=== PATIENT | male | born 1935 | race Caucasian/White ===

== ENCOUNTER 2020-11-02 10:19 | Outpatient (CLI) | payer MEDICARE, SELFPAY ==
--- NOTE | 2020-11-02 12:50 | WPDPFTINT ---
PFT Procedure Performed PFT Procedure Performed Plethysmography (Lung Vol) Diffusing Cap (DLCO) Flow Vol Loop Spirometry w/o Bronchodil PFT Interpretation This is a pulmonary function test with spirometry, plethysmography and diffusing capacity. The test was performed and results interpreted in accordance with the 2019 and 2005 ATS/ERS Task Force guidelines respectively using the Global Lung Function Initiative-2012 reference equations. Patient demonstrated good effort and cooperation. Reproducibility criteria were met. The quality of the pre bronchodilator spirometry maneuver was Grade A. Findings: Spirometry: There is decreased maximal expiratory airflow at low lung volumes with a concave expiratory flow tracing. The contour the inspiratory flow tracing is normal. the FVC is 2.62 L, 73% predicted. The FEV1 is 1.76 L, 66% predicted. The FEV1: FVC ratio 67%. Plethysmography: The total lung capacity is 4.53 L, 68% predicted. Functional residual capacity is 1.80 L, 50% predicted. The residual volume is 1.75, 67% predicted. Diffusion capacity: The absolute diffusion capacity is 12.6, 56% predicted. The diffusing capacity corrected for alveolar volume is 3.46, 94% predicted. Impression: There is a combined obstructive and restrictive ventilatory abnormality. There are no guidelines to assign the severity of obstruction and restriction with a combined abnormality. In my opinion, given the mildly concaved expiratory flow tracing and mildly decreased FEV1: FVC ratio and mild restrictive abnormality I would state there is a mild obstructive abnormality and a mild restrictive abnormality resulting in a moderately decreased FEV1. The absolute diffusing capacity is moderately decreased but normalizes when corrected for alveolar volume. There are no prior studies for comparison
== END 2020-11-02 10:20 | disposition home or self-care (01) ==
PROVIDERS: PCP Internal Medicine; Visit Provider Internal Medicine Cardiovascular Disease
DX: R06.00 Dyspnea, unspecified (principal)
CPT/HCPCS: 94375; 94726; 94729

== ENCOUNTER 2023-03-30 19:10 | Inpatient (IN) | payer MEDICARE, SELFPAY ==
[2023-03-30] VITALS (16 sets, daily range): BP systolic 89–121; BP diastolic 30–90; PULSE 24–33; RESP 12–15; TEMP 36.7; O2SAT 93–98
--- NOTE | ~2023-03-30 | XR_ITS ---
EXAMINATION: XR chest 1V portable Exam Date/Time: 03/30/2023 19:30 CDT HISTORY: syncope Comparison: None. RESULT: Lines, tubes, and devices: Suture line projecting over the left lower lung. Lungs and pleura: Low volumes with crowding. Granulomatous calcification. Cardiomediastinal silhouette: Stable. Other: No acute osseous or upper abdominal finding. IMPRESSION: No acute cardiopulmonary process. Reviewed, dictated and finalized at location K.
--- NOTE | ~2023-03-30 | XR_ITS ---
EXAMINATION: XR chest 1V portable DATE: 03/31/2023 13:19 INDICATION: Pacer placement. TECHNIQUE: A single frontal view of the chest was obtained. COMPARISON: Chest single view 03/30/2023 FINDINGS: A calcified right lung nodule and calcified right hilar and mediastinal lymph nodes are con sistent with old granulomatous disease. A staple line overlies left lung. No pleural effusion or pneu mothorax. The heart size is normal. An implant overlies the heart. IMPRESSION: 1. No acute cardiopulmonary disease. Reviewed, dictated and finalized at location E.
--- NOTE | ~2023-03-30 | XR_ITS ---
Clinical Indication: Status post pacemaker placement PA and lateral views of the chest: Comparison: 03/31/2023 Findings: Calcified right upper lobe granuloma present. Suture line at the left lung base noted. No a cute pulmonary abnormality seen. Cardiomediastinal silhouette is within normal limits. Cardiac loop r ecorder is present. Bones and soft tissues are unremarkable. Impression: No acute abnormality. Cardiac loop recorder in place. Reviewed, dictated and finalized at location M. Impression: No acute abnormality. Cardiac loop recorder in place.
--- NOTE | 2023-03-30 19:12 | ECG_ITS ---
Measurements Intervals [employer] Rate: 24 P: MO: 0 QRS: 39 QRSD: 130 T: 15 QT: 541 QTc: 344 Interpretive Statements NORMAL SINUS RHYTHM WITH COMPLETE HEART BLOCK JUNCTIONAL ESCAPE RHYTHM ABNORMAL ECG NO PREVIOUS ECG AVAILABLE FOR COMPARISON Electronically Signed On 03-31-2023 13:29:27 CDT by Rui Antonio M.D.
[2023-03-30] MEDS: ATROPINE SULFATE 1 MG/10 ML SYRINGE IV PUSH ×2 (19:47→21:19)
[2023-03-30] MEDS: ONDANSETRON INJ 4 MG/2 ML VIAL IV PUSH ×2 (19:47→21:20)
[2023-03-30 19:54] LABS: Basophils Percent Auto 0.3 % (0.2-1.2); Eosinophils Absolute Auto 0.2 K/mm3 (0-0.3); Eosinophils Percent Auto 1.7 % (0-4.4); Hematocrit 38.6 % (42.0-52.0); Hemoglobin 12.9 g/dL (14.0-18.0); Immature Granulocyte Absolute 0.06 K/mm3 (0.00-0.031); Immature Granulocyte Percent A 0.6 % (0-0.5); Lymphocytes Absolute Auto 1.59 K/mm3 (0.9-3.2); Lymphocytes Percent Auto 16.6 % (18.3-44.2); Mean Corpuscular HGB Conc 33.4 g/dl (32-36); Mean Corpuscular Hemoglobin 30.3 pg (26-34); Mean Corpuscular Volume 90.6 fl (80-100); Mean Platelet Volume 9.2 fl (7.4-10.4); Monocytes Percent Auto 10.8 % (2.6-8.5); Neutrophils Absolute Auto 6.7 K/mm3 (1.3-6.7); Platelet Count Result 260 k/mm3 (150-375); Red Blood Count 4.26 M/mm3 (4.6-6.20); Red Cell Distribution Width 12.1 % (11.5-14.5); White Blood Count 9.6 K/mm3 (4.5-10.0)
[2023-03-30] MEDS: DOPamine 400 MG/D5W 250 ML 400 MG/250 ML BAG 8.81 MG IV CONT (19:54)
[2023-03-30 20:04] LABS: Alanine Aminotransferase 18 U/L (6-50); Alkaline Phosphatase 66 U/L (38-126); Anion Gap 9 mmol/L (8-16); Aspartate Amino Transferase 29 U/L (17-59); Bilirubin,Total 0.7 mg/dL (0.2-1.3); Blood Urea Nitrogen 21 mg/dL (9-20); Calcium 8.4 mg/dL (8.4-10.2); Carbon Dioxide 23 mmol/L (22-30); Chloride 98 mmol/L (98-107); Estimated CRCL calculation 48 ml/min; Estimated Glomerular Filt Rate > 60; Glucose 100 mg/dL (65-110); Magnesium 2.3 mg/dL (1.6-2.3); Phosphorus 3.7 mg/dL (2.5-4.5); Potassium 4.9 mmol/L (3.4-5.0); Sodium 130 mmol/L (137-145)
[2023-03-30 20:15] LABS: Troponin I < 0.012 ng/mL (0.000-0.034)
[2023-03-30] MEDS: DOPamine 400 MG/D5W 250 ML 400 MG/250 ML BAG 7.05 MG IV CONT (20:18)
[2023-03-30] MEDS: SODIUM CHLORIDE 0.9% IV 1,000 ML 999 ML IV CONT (20:21)
--- NOTE | 2023-03-30 20:23 | PC.NURSE ---
Per verbal order read back from EDP Dr. Christianson dopamine increased to 4mcg/kg.hr.
--- NOTE | 2023-03-30 20:45 | PC.NURSE ---
Per verbal order read back from EDP Dr. Christianson dopamine increased by 2 to 7 mcg/kg/min.
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
[2023-03-30] MEDS: MIDAZOLAM HCL (*CRX) 2 MG/2 ML VIAL IV PUSH (21:20)
[2023-03-30] MEDS: MIDAZOLAM HCL (*CRX) 2 MG/2 ML VIAL 5 MG IV PUSH (21:30)
[2023-03-30] MEDS: fentaNYL CITRATE INJ (*CRX) 100 MCG/2 ML VIAL 50 MCG IV PUSH (21:50)
--- NOTE | 2023-03-30 22:16 | PC.NURSE ---
[facility] sleep lab technician call 21:47, calls returned Vera Shell Renee at [phone]
[2023-03-30] MEDS: RAPID SEQUENCE INTUBATION KIT 1 EACH (22:46)
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
--- NOTE | 2023-03-30 23:56 | ADMIMU ---
2353: This patient, Candelario Tyson, was admitted to IMU status, and placed in Intensive Care Unit-6. Patient/family oriented to hospital policies and general routines including ID bracelet, bed and alarms, visiting hours, pain management, procedures, bathroom and other care routines, personal items, smoking policy, room service/diet, and visiting hours. Valuables list has been completed. Information on how to activate the Rapid Response Team has been discussed. Patient/Family are encouraged to report perceived risks to care and to ask questions if they do not understand what they are told or what they should do.
[2023-03-31] VITALS (18 sets, daily range): BP systolic 96–138; BP diastolic 41–94; PULSE 60–80; RESP 15–20; TEMP 36.2–36.9; O2SAT 91–100; BMI 31.2
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
[2023-03-31 09:09] LABS: Anion Gap 5 mmol/L (8-16); Blood Urea Nitrogen 23 mg/dL (9-20); Calcium 8.2 mg/dL (8.4-10.2); Carbon Dioxide 23 mmol/L (22-30); Chloride 100 mmol/L (98-107); Estimated CRCL calculation 43 ml/min; Estimated Glomerular Filt Rate 58; Glucose 100 mg/dL (65-110); Potassium 5.5 mmol/L (3.4-5.0); Sodium 128 mmol/L (137-145)
--- NOTE | 2023-03-31 11:16 | WPDMODSED ---
Moderate Sedation Note-Pt Data Patient Data Diagnosis: Acquired complete heart block with syncope Present Complaint: Syncopal episode Procedure to be performed/Plan: Implantation of permanent pacemaker Allergies Allergy/AdvReac Type Severity Reaction Status Date / Time No Known Allergies Allergy Unknown Verified 02/26/23 08:59 Home Medications Medication Instructions Recorded Confirmed Type atorvastatin 40 mg tablet 40 mg PO QPM 03/17/20 03/31/23 History cholecalciferol (vitamin D3) 125 125 mcg PO QMWF 03/17/20 03/31/23 History mcg (5,000 unit) capsule docusate sodium 100 mg capsule 100 mg PO DAILY PRN Constipation 03/17/20 03/31/23 History finasteride 5 mg tablet 5 mg PO DAILY 03/17/20 03/30/23 History lisinopril 2.5 mg tablet 2.5 mg PO DAILY 03/17/20 03/30/23 History metoprolol succinate 25 mg 25 mg PO DAILY 03/17/20 03/30/23 History tablet,extended release 24 hr multivitamin with minerals 1 cap PO DAILY 03/17/20 03/30/23 History nitroglycerin 0.4 mg sublingual 0.4 mg sublingual Q5M PRN Chest 03/17/20 03/31/23 History tablet (Nitrostat) Pain tamsulosin 0.4 mg capsule 0.4 mg PO DAILY #90 caps 09/13/22 03/30/23 Rx gabapentin 300 mg capsule 300 mg PO TID #90 caps 09/16/22 03/30/23 Rx Current Medications: Active Medications Atorvastatin Calcium (Atorvastatin 40 Mg Tablet) 40 mg PO QPM ELI Docusate Sodium (Docusate Sodium 100 Mg Capsule) 100 mg PO DAILY PRN PRN Reason: Constipation Finasteride (Finasteride 5 Mg Tablet) 5 mg PO DAILY ELI Gabapentin (Gabapentin 300 Mg Capsule) 300 mg PO TID ELI Tamsulosin HCl (Tamsulosin Hcl 0.4 Mg Capsule) 0.4 mg PO DAILY ELI Sedation/Anesthesia: No previous sedation/anesthesia problems (including family history). [facility] Past Medical History Medical History AAA (abdominal aortic aneurysm) With stenting BPH (benign prostatic hyperplasia) C2 cervical fracture Managed conservatively C6 cervical fracture Cervical radiculopathy CKD (chronic kidney disease) stage 3, GFR 30-59 ml/min COPD (chronic obstructive pulmonary disease) Pulmonary function testing 2020 demonstrate combined obstructive and restrictive ventilatory defect Coronary artery disease Nonobstructive coronary disease noted on cardiac catheterization 2016 GERD (gastroesophageal reflux disease) HTN (hypertension) Hyperlipidemia Prediabetes Umbilical hernia Surgical History Surgical History History of cardiac catheterization (~2017) History of colonoscopy with polypectomy History of right below knee amputation At 55 years of age due to trauma Hx of cholecystectomy Status post cataract extraction of both eyes with insertion of intraocular lens Family History Family History Father Acute myocardial infarction Malignant neoplasm of prostate Mother Family history of aortic aneurysm Other Cerebrovascular accident Family history of cardiovascular disease Hypertension Social History Social History Social History: The patient lives with his of 45 years. He drinks coffee daily. He denies any alcohol or drug use history. He used to smoke but quit smoking over 20 years ago. Code status: The patient states he would not usually want heroic measures. However he is willing to have cardiopulmonary resuscitation in the event of cardiac arrest if in the course of placement of a pacemaker. He would not want to be on a ventilator long-term. He would not want a feeding tube. His was present at bedside when the patient made the statements. Surrogate decision maker: Smoking status: Former smoker Additional smoking assessment comments: patient smoked for 52 years Alcohol intake: never Alcohol use details: occasional beer Substance use type: does not use Lack of Transpo
--- NOTE | 2023-03-31 12:14 | ECG_ITS ---
Measurements Intervals [place] Rate: 68 P: [place]: 0 QRS: 80 QRSD: 162 T: -72 QT: 438 QTc: 468 Interpretive Statements ELECTRONIC VENTRICULAR PACEMAKER ABNORMAL RHYTHM ECG COMPARED TO ECG 03/30/2023 19:18:17 AV BLOCK, COMPLETE (THIRD-DEGREE) NO LONGER PRESENT Electronically Signed On 04-01-2023 12:10:56 CDT by Cassie Tamayo M.D.
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
[2023-03-31] MEDS: GABAPENTIN 300 MG CAPSULE PO ×2 (13:10→16:28)
[2023-03-31] MEDS: SODIUM CHLORIDE 0.9% IV 1,000 ML 50 ML IV CONT (13:11)
[2023-03-31] MEDS: FINASTERIDE 5 MG TABLET PO (13:11)
[2023-03-31] MEDS: TAMSULOSIN HCL 0.4 MG CAPSULE PO (13:11)
[2023-03-31] MEDS: ceFAZolin 1 GM/NS 50 ML 1 GM/50 ML BAG IVPB ×2 (13:24→21:10)
--- NOTE | 2023-03-31 15:24 | PC.NURSE ---
This patient, Candelario Tyson, was transferred to [facility] on 03/31/23 at 1510. Personal belongings sent with patient. Report given to Kori WESLEY. Appropriate documentation sent with patient.
--- NOTE | 2023-03-31 17:39 | PM.IMPN ---
Progress Note: A&P Assessment and Plan (1) Heart block AV third degree: Code(s): I44.2 - Atrioventricular block, complete Status: Acute Assessment and Plan: Patient presented with complete heart block and did not respond to atropine or transcutaneous pacing. Status post transvenous pacemaker placement cardiology overnight. Internal Revenue Agent placed permanent pacemaker today. No complications Continue telemetry monitoring (2) Syncope: Qualifiers: Syncope type: unspecified Qualified Code(s): R55 - Syncope and collapse Code(s): R55 - Syncope and collapse Status: Acute Assessment and Plan: Secondary to bradycardia. Now asymptomatic (3) COPD (chronic obstructive pulmonary disease): Qualifiers: COPD type: unspecified COPD Qualified Code(s): J44.9 - Chronic obstructive pulmonary disease, unspecified Code(s): J44.9 - Chronic obstructive pulmonary disease, unspecified Status: Acute Assessment and Plan: Not in exacerbation He has mild disease and has not been symptomatic at home Monitor (4) Coronary artery disease: Qualifiers: Coronary Disease-Associated Artery/Lesion type: unspecified vessel or lesion type [place] vs. transplanted heart: unspecified whether [place] or transplanted heart Associated angina: angina presence unspecified Qualified Code(s): I25.10 - Atherosclerotic heart disease of [place] coronary artery without angina pectoris Code(s): I25.10 - Atherosclerotic heart disease of [place] coronary artery without angina pectoris Status: Acute Assessment and Plan: Resume beta-megan and RAJIV-inhibitor once placement pacemakers placed depending on the vitals Continue statin Aspirin is on hold for the procedure (5) HTN (hypertension): Qualifiers: Hypertension type: essential hypertension Qualified Code(s): I10 - Essential (primary) hypertension Code(s): I10 - Essential (primary) hypertension Status: Acute Assessment and Plan: Blood pressure acceptable at this time. Monitor Lisinopril and beta-megan on hold Resume blood pressure medication when blood pressure bumps up Plan DVT prophylaxis -start Lovenox post pacemaker placement Code Status - Full Code Subjective Date/time seen: 03/31/23 17:39 Interval history: I saw and examined the patient on her patient came back from experimental machining lab manager. Patient received pacemaker, patient denied chest pain, abdomen pain, headache, focal with a, vision change. Exam Narrative: General: Pt is alert awake and in NAD Lungs/Chest: Trachea central Clear BS B/L, No crackles or wheezing. Cardiac: RRR. Normal S1 S2. No murmurs Circulation: Pedal pulses are intact and symmetrical. Abdomen: Normal bowel sounds.. Soft. NT. ND. Extremities: No clubbing, cyanosis or edema. Warm status post right BKA, need to insert inset in right groin, no hematoma or active bleeding : Jones in place Neurologic: Follows commands. Moves all 4 extremities PERRL AO x3 Skin: No Rash Objective Data Vital Signs Vital Signs: Vital Signs - 24 hr 03/30/23 19:19 03/30/23 19:54 03/30/23 20:05 Temperature 98.0 F Pulse Rate 24 L 31 L 28 L Pulse Rate [Left Pedal (Dorsalis Pedis)] Respiratory Rate 14 Blood Pressure 114/62 108/44 L Pulse Oximetry 96 Oxygen Delivery Room Air Oxygen Flow Rate Fraction of Inspired Oxygen 03/30/23 20:18 03/30/23 20:20 03/30/23 19:54 Temperature Pulse Rate 31 L 31 L 24 L Pulse Rate [Left Pedal (Dorsalis Pedis)] Respiratory Rate 12 Blood Pressure 97/30 L 98/32 L 108/44 L Pulse Oximetry 97 Oxygen Delivery Oxygen Flow Rate Fraction of Inspired Oxygen 03/30/23 20:00 03/30/23 20:26 03/30/23 20:27 Temperature Pulse Rate 27 L 32 L Pulse Rate [Left Pedal (Dorsalis Pedis)] Respiratory Rate 13 Blood Pressure 100/38 L Pulse Oximetry 98 Oxygen Delivery Nasal Cannula Oxygen
[2023-03-31] MEDS: ATORVASTATIN 40 MG TABLET PO (17:58)
[2023-04-01] VITALS (11 sets, daily range): BP systolic 96–128; BP diastolic 43–59; PULSE 61–79; RESP 18–20; TEMP 36.6–36.9; O2SAT 93–98
[2023-04-01] MEDS: FINASTERIDE 5 MG TABLET PO (09:08)
[2023-04-01] MEDS: TAMSULOSIN HCL 0.4 MG CAPSULE PO (09:08)
[2023-04-01] MEDS: GABAPENTIN 300 MG CAPSULE PO ×3 (09:08→17:36)
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
[2023-04-01 12:42] LABS: Anion Gap 8 mmol/L (8-16); Blood Urea Nitrogen 18 mg/dL (9-20); Calcium 8.2 mg/dL (8.4-10.2); Carbon Dioxide 23 mmol/L (22-30); Chloride 98 mmol/L (98-107); Estimated CRCL calculation 46 ml/min; Estimated Glomerular Filt Rate > 60; Glucose 129 mg/dL (65-110); Potassium 4.8 mmol/L (3.4-5.0); Sodium 129 mmol/L (137-145)
[2023-04-01] MEDS: DOCUSATE SODIUM 100 MG CAPSULE PO (13:05)
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
[2023-04-01] MEDS: ATORVASTATIN 40 MG TABLET PO (17:36)
== END 2023-04-01 17:47 | disposition home or self-care (01) | DRG 229 ==
LOC: ANHED 22:32 → ANHICU 23:36 → ANHIMU 03-31 15:18
PROVIDERS: Internal Medicine; Nurse Practitioner; Admitting Provider Specialist; Emergency Provider Emergency Medicine; PCP Internal Medicine; Visit Provider Family Medicine
PROC: 5A1213Z Performance of Cardiac Pacing, Intermittent (ICD-10-PCS; CPT 33210; principal; 2023-03-30 22:30)
PROC: 02HK3NZ Insertion of Intracardiac Pacemaker into Right Ventricle, Percutaneous Approach (ICD-10-PCS; CPT 33274; principal; 2023-03-31 11:00)
DX: I44.2 Atrioventricular block, complete (principal); R55 Syncope and collapse; I12.9 Hypertensive chronic kidney disease with stage 1 through stage 4 chronic kidney disease, or unspecified chronic kidney disease; N18.31 Chronic kidney disease, stage 3a; J44.9 Chronic obstructive pulmonary disease, unspecified; I25.10 Atherosclerotic heart disease of native coronary artery without angina pectoris; M54.12 Radiculopathy, cervical region; I44.7 Left bundle-branch block, unspecified; E78.5 Hyperlipidemia, unspecified; N40.0 Benign prostatic hyperplasia without lower urinary tract symptoms; E66.9 Obesity, unspecified; Z87.891 Personal history of nicotine dependence; V47.5XXA Car driver injured in collision with fixed or stationary object in traffic accident, initial encounter; Z89.511 Acquired absence of right leg below knee; Z98.42 Cataract extraction status, left eye; Z98.41 Cataract extraction status, right eye; Z68.30 Body mass index [BMI] 30.0-30.9, adult; Z96.1 Presence of intraocular lens
CPT/HCPCS: 33210; 33274; 36415; 71045; 71046; 80048; 80053; 83735; 84100; 84484; 85025; 93005; 96365; 96366; 96367; 96375; 96376; 99285; A9270; C1769; C1786; C1894; J0461; J0690; J1265; J1644; J2250; J2405; J3010; J7030; J7040

== ENCOUNTER 2025-04-03 02:22 | Emergency (ER) | payer OTHER, SELFPAY ==
[2025-04-03] VITALS (17 sets, daily range): BP systolic 115–172; BP diastolic 53–83; PULSE 69–93; RESP 16–22; TEMP 36.4; O2SAT 94–100
--- NOTE | ~2025-04-03 | CT_ITS ---
CHEST ABDOMEN PELVIS WITH CONTRAST CLINICAL HISTORY: CP/epigastric pain; hx AAA . COMPARISON: Chest x-ray same day TECHNIQUE: Helical CT performed from thoracic inlet to symphysis pubis 100 mL Omnipaque 350 Coronal, sagittal reformats. Multi planar MIPS CT images acquired with automatic exposure control for dose reduction DLP: 897 mGy-cm FINDINGS: CHEST- Lungs/Pleura: A few calcified granulomata. Focal atelectasis left lateral base. Thoracic Aorta: No dissection. No aneurysm. Atherosclerotic disease. Pulmonary arteries: Normal caliber. Heart: Coronary artery calcifications. Tracheobronchial tree: Patent. Nodes: No enlarged nodes. Mediastinal and hilar calcifications. Bones: No acute bony abnormality. Soft tissues: Unremarkable. ABDOMEN/PELVIS- Liver: Intra and extrahepatic biliary ductal dilatation after cholecystectomy. Gallbladder: Removed. Spleen: Unremarkable. Pancreas: Unremarkable. Adrenal glands: Unremarkable. Kidneys: Right kidney- No hydronephrosis. No renal stones. Cyst. Left kidney- No hydronephrosis. No renal stones. Distal esophagus/stomach: Unremarkable. Small bowel loops: Normal caliber and wall thickness. Colon: A few diverticula. Normal caliber and wall thickness. Normal RLQ appendix. Nodes: No enlarged nodes. Peritoneum: No ascites. No free air. Urinary bladder: Diverticulum right UVJ, with possible mild mural irregularity. Prostate: Unremarkable. Bones: No acute bony abnormality. Soft tissues: Unremarkable. Aorta: Bifurcating endograft. Excluded aneurysm sac 4.9 cm. No endoleak on this single phase scan. IVC: Unremarkable. Main portal vein/SMV/splenic vein: Patent. IMPRESSION: CHEST- 1. No acute abnormality. ABDOMEN/PELVIS- 1. No acute abnormality. 2. Small bladder diverticulum near right UVJ. Consider cystoscopy given possible slight mural irregularity. 3. Excluded AAA sac after EVAR 4.9 cm. Recommend surveillance. Reviewed, dictated and finalized at location R. IMPRESSION: CHEST- 1. No acute abnormality. ABDOMEN/PELVIS- 1. No acute abnormality. 2. Small bladder diverticulum near right UVJ. Consider cystoscopy given possib le slight mural irregularity. 3. Excluded AAA sac after EVAR 4.9 cm. Recommend surveillance.
--- NOTE | ~2025-04-03 | XR_ITS ---
Examination: XR chest 2V Clinical History: Chest pain Comparison: 04/01/2023 Technique: PA and Lateral Findings: Wireless pacemaker. Cardiomediastinal silhouette normal size and configuration. Left basilar suture line. Right upper lobe calcified granuloma. Lungs otherwise clear. No acute bony abnormality. Cholecystectomy. Abdominal aortic endograft. IMPRESSION: 1. No acute cardiopulmonary findings. Reviewed, dictated and finalized at location R.
--- NOTE | 2025-04-03 02:23 | ECG_ITS ---
Test Date: 2025-04-03 04:56:49 Measurements Intervals [place] Rate: 74 P: 42 [place]: 165 QRS: -7 QRSD: 152 T: 99 QT: 407 QTc: 454 Interpretive Statements ELECTRONIC VENTRICULAR PACEMAKER BASELINE ARTIFACT- I, II, AVR, AVL, AVF, V4-V6 NO FURTHER INTERPRETATION IS POSSIBLE ATYPICAL ECG No previous ECG available for comparison Electronically Signed On 04-03-2025 08:23:28 CDT by Carlos Alberto Nelson D.O.
[2025-04-03 02:48] LABS: Hematocrit 39.3 % (42.0-52.0); Hemoglobin 13.3 g/dL (14.0-18.0); Immature Granulocyte Percent A 0.6 % (0-0.5); Lymphocytes Absolute Auto 1.51 K/mm3 (0.9-3.2); Mean Corpuscular HGB Conc 33.8 g/dl (32-36); Mean Corpuscular Hemoglobin 30.4 pg (26-34); Mean Corpuscular Volume 89.7 fl (80-100); Nucleated Red Blood Cells Absolute Auto 0.000 K/mm3 (0.0-0.012); Nucleated Red Blood Cells Perc 0.0 % (0.0-0.2); Platelet Count Result 267 k/mm3 (150-375); Red Blood Count 4.38 M/mm3 (4.6-6.20); White Blood Count 9.6 K/mm3 (4.5-10.0)
[2025-04-03 02:52] LABS: Alanine Aminotransferase 35 U/L (6-50); Albumin Level 3.8 g/dL (3.5-5.1); Alkaline Phosphatase 81 U/L (38-126); Anion Gap 6 mmol/L (4-12); Aspartate Amino Transferase 72 U/L (17-59); Bilirubin,Total 0.7 mg/dL (0.2-1.3); Blood Urea Nitrogen 19 mg/dL (9-20); Calcium 8.7 mg/dL (8.4-10.2); Carbon Dioxide 27 mmol/L (22-30); Chloride 97 mmol/L (98-107); Estimated Glomerular Filt Rate > 60; Glucose 109 mg/dL (65-110); Lipase 51 U/L (23-300); Potassium 4.5 mmol/L (3.4-5.0); Sodium 130 mmol/L (137-145); Total Protein 6.6 g/dL (6.3-8.2)
[2025-04-03 02:53] LABS: INR 1.0; Prothrombin Time 13.2 Seconds (11.1-14.7)
[2025-04-03 02:54] LABS: Partial Thromboplastin Time 29.1 Seconds (22.3-36.8)
[2025-04-03 03:02] LABS: Troponin I < 0.012 ng/mL (0.000-0.034)
[2025-04-03] MEDS: ASPIRIN 81 MG CHEWABLE TABLET 324 MG PO (04:42)
--- NOTE | 2025-04-03 04:42 | PC.NURSE ---
Pt presents to ED c/o 07/09 chest pain, non radiating lasting about 30min. Per pt was woken up from his sleep, symptoms subsided prior to being roomed.
--- NOTE | 2025-04-03 05:32 | ECG_ITS ---
Test Date: 2025-04-03 05:47:57 Measurements Intervals [place] Rate: 71 P: 50 [place]: 155 QRS: -11 QRSD: 163 T: 104 QT: 439 QTc: 479 Interpretive Statements ATRIAL SENSE- ELECTRONIC VENTRICULAR PACEMAKER NO FURTHER INTERPRETATION IS POSSIBLE ATYPICAL ECG Compared to ECG 04/03/2025 04:56:49 No significant changes Electronically Signed On 04-03-2025 08:26:32 CDT by Carlos Alberto Nelson D.O.
--- NOTE | 2025-04-03 05:36 | ED_ITS ---
HPI - Chest Pain General Chief Complaint: Chest Pain Stated Complaint: Epigastric/chest pain Time Seen by Provider: 04/03/25 05:07 Source: patient and family () Mode of arrival: ambulatory Limitations: no limitations History of Present Illness HPI narrative: Patient presents with was initially reported as chest pain versus epigastric pain he does consistently point to his epigastrium. He has had similar pain before. This pain awoke him from his sleep. History of a AAA and aneurysm further down in groin which was discovered in 2015 after undergoing cardiac catheterization for an ME; it is unclear if he has any stents. Unclear if he had blockages. keeps stating he had a left bundle branch blockage. This was performed by Dr Edwards who had been with Bruno and now Sreedhar (or vice versa); then seen by bottom cager Dr Mitchell. Patient saw his vascular surgeon in November and this continues to be monitored. His symptoms have lessened over the last 2 hours and arm no longer present and he states that he feels silly about being in the emergency department at this time. He has otherwise been in his baseline state of health and denies any cough, fevers, chills, shortness of breath, nausea, vomiting, diaphoresis. He takes that daily 81 mg aspirin no other anticoagulation. His last bowel movement was without diarrhea, constipation, or blood. He initially denies any previous abdominal surgeries but he is status post cholecystectomy upon further assessment (and stenting is reported for his AAA on review of EMR). Patient saw the bottom cager Dr. Henderson a few weeks ago. He has a pacemaker with in his heart, reports it being the size of the ear piece on stethoscope. His primary care physician is Dr. Becerril. He has a reducible umbilical hernia. Cardiac risk factors HTN: No (he is reportedly on metoprolol for other non hypertensive reasons though unclear what and hypertension is listed on his PMH in EMR) HLD: Yes, on medication DM: No Obese: - yes based on appearance Smoker: No Personal history ME/TIA/CVA: Yes? Related Data Home Medications ?Medication ?Instructions ?Recorded ?Confirmed ?Last Taken ?Type atorvastatin 40 mg tablet 40 mg PO QPM 03/17/20 Unknown History cholecalciferol (vitamin D3) 125 125 mcg PO QMWF 09/18 /20 10/02/23 Unknown History mcg (5,000 unit) capsule docusate sodium 100 mg capsule 100 mg PO DAILY PRN Con stipation 03/17/20 03/31/23 Unknown History finasteride 5 mg tablet 5 mg PO DAILY 03/17/2003/30 Unknown History metoprolol succinate 25 mg 25 mg PO DAILY 03/17/2007/22 Unknown History tablet,extended release 24 hr multivitamin with minerals 1 cap PO DAILY 03/17/2007/22 Unknown History nitroglycerin 0.4 mg sublingual 0.4 mg sublingual Q5M PRN Chest 03/17/20 03/31/23 Unknown History tablet (Nitrostat) Pain aspirin 81 mg tablet,delayed 81 mg PO DAILY 10/09/23 Unknown History release (Adult Low Dose Aspirin) vitamin C 45 mg-zinc citrate 3.75 tablet PO 10/09/23 Unknown History mg-elderberry 50 mg chewable tablet ([employer]) Allergies Allergy/AdvReac Type Severity Reaction Status Date / Time No Known Allergies Allergy Unknown Verified 04/03/25 02:23 [facility] Past Medical History Medical History BPH (benign prostatic hyperplasia) Umbilical hernia GERD (gastroesophageal reflux disease) CKD (chronic kidney disease) stage 3, GFR 30-59 ml/min Prediabetes Cervical radiculopathy C6 cervical fracture C2 cervical fracture Managed conservatively COPD (chronic obstructive pulmonary disease) Pulmonary function testing 2020 demonstrate combined obstructive and restrictive ventilatory defect AAA (abdominal aortic aneurysm) With stenting Coronary artery disease Nonobstructive coronary disease noted on cardiac catheterization 2016 Hyperlipidemia HTN (hypertension) Surgical History Surgical History Status post cataract extraction of both eyes with insertion of intraocular lens History of colonoscopy with polypectomy Hx of cholecystectomy History of cardiac catheterization (~2017) History of right below knee amputation At 55 years of age due to trauma Family History Family History Father Acute myocardial infarction Malignant neoplasm of prostate Mother Family history of aortic aneurysm Other Cerebrovascular accident Family history of cardiovascular disease Hypertension Social History Social History (Updated 04/03/25 @ 08:48 by Brenna De Los Santos MD) Social History: The patient lives with his of 45 years. He drinks coffee daily. He denies any alcohol or drug use history. He used to smoke but quit smoking over 20 years ago. Code status: The patient states he would not usually want heroic measures. However he is willing to have cardiopulmonary resuscitation in the event of cardiac arrest if in the course of placement of a pacemaker. He would not want to be on a ventilator long-term. He would not want a feeding tube. His was present at bedside when the patient made the statements. 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 HEAD: Normocephalic, atraumatic. EYES: Non injected, non icteric ENT: Nares clear, no rhinorrhea or epistaxis. Gross auditory acuity intact. NECK: Supple. No meningismus. CHEST: Speaking in full sentences. No respiratory distress. HEART: Regular rate and rhythm. . ABDOMEN: Obese but Soft, distended but No rigidity or guarding. Not peritoneal. Reducible umbilical hernia. EXTREMITIES: Normal range of motion. R BKA ; stump intact without erythema, purulent drainage. SKIN: Warm, dry, no rash. NEURO: No focal deficits. Alert and oriented. Answering questions. Following commands. Normal speech without aphasia or dysarthria. PSYCH: Normal mood and affect. Course Vital Signs Vital signs: Vital Signs Temperature 97.6 F 04/03/25 02:26 Pulse Rate 80 04/03/25 02:26 Respiratory Rate 22 H 04/03/25 02:26 Blood Pressure 141/53 H 04/03/25 02:26 Pulse Oximetry 98 04/03/25 02:26 Oxygen Delivery Room Air 04/03/25 02:26 Temperature 97.6 F 04/03/25 02:26 Pulse Rate 86 04/03/25 08:47 Respiratory Rate 16 04/03/25 08:47 Blood Pressure 127/65 04/03/25 08:47 Pulse Oximetry 97 04/03/25 08:47 Oxygen Delivery Room Air 04/03/25 04:47 MDM - Chest Pain MDM Narrative Medical decision making narrative: Patient presents with epigastric abdominal pain. At 1st it was questionable chest pain versus epigastric pain however he distinctly points at his epigastrium. Pain improved of the course of 2 hours. In the emergency department he is afebrile signs notable for mild tachypnea mild hypertension. No leukocytosis. He has a very mild anemia but it represents only a change of 0.1 from previous. He has an isolated AST elevation not previously seen. He has chronic hyponatremia, stable. Repeat troponin normal. Urinalysis unremarkable. Patient's pain has improved and has not recurred. He feels fine with being discharged. Confirms he already has a urologist, Dr Mott, for follow up of the bladder lesion seen on CT which I discussed with him. Differential Diagnosis Differential diagnosis: Likely stable angina, unstable angina pectoris, atypical chest pain, st elevation myocardial infarction, chest pain, biliary colic (considered but patient s/p natasha) and other (Pancreatitis, constipation gastritis GERD; small bowel obstruction; peptic/gastric ulcer) Lab Data Attestation: I reviewed the patient's lab results. 04/03/25 02:33 04/03/25 02:32 Labs: Lab Results 04/03/25 04/03/25 04/03/25 Range/Units 02:32 02:33 05:57 WBC 9.6 (4.5-10.0) K/mm3 RBC 4.38 L (4.6-6.20) M/mm3 Hgb 13.3 L (14.0-18.0) g/dL Hct 39.3 L (42.0-52.0) % MCV 89.7 (80-100) fl MCH 30.4 (26-34) pg MCHC 33.8 (32-36) g/dl RDW 12.1 (11.5-14.5) % Plt Count 267 (150-375) k/mm3 MPV 9.2 (7.4-10.4) fl Immature Gran % (Auto) 0.6 H (0-0.5) % Neut % (Auto) 68.6 (45.5-73.1) % Lymph % (Auto) 15.7 L (18.3-44.2) % Moody % (Auto) 10.1 H (2.6-8.5) % Eos % (Auto) 4.6 H (0-4.4) % Baso % (Auto) 0.4 (0.2-1.2) % Lymph # (Auto) 1.51 (0.9-3.2) K/mm3 Moody # (Auto) 1.0 H (0.1-0.6) K/mm3 Eos # (Auto) 0.4 H (0-0.3) K/mm3 Baso # (Auto) 0.0 (0.0-0.1) K/mm3 Abs Immat Gran (auto) 0.06 H (0.00-0.031) K/mm3 Absolute Neuts (auto) 6.6 (1.3-6.7) K/mm3 Absolute Nucleated RBC 0.000 (0.0-0.012) K/mm3 Nucleated RBC % 0.0 (0.0-0.2) % PT 13.2 (11.1-14.7) Seconds INR 1.0 APTT 29.1 (22.3-36.8) Seconds Sodium 130 L (137-145) mmol/L Potassium 4.5 (3.4-5.0) mmol/L Chloride 97 L (98-107) mmol/L Carbon Dioxide 27 (22-30) mmol/L Anion Gap 6 (4-12) mmol/L BUN 19 (9-20) mg/dL Creatinine 1.06 (0.7-1.3) mg/dL Estim Creat Clear Calc Not Reportable Estimated GFR > 60 (59 - ) Glucose 109 (65-110) mg/dL Calcium 8.7 (8.4-10.2) mg/dL Total Bilirubin 0.7 (0.2-1.3) mg/dL AST 72 H (17-59) U/L ALT 35 (6-50) U/L Alkaline Phosphatase 81 (38-126) U/L Troponin I < 0.012 < 0.012 (0.000-0.034) ng/mL NT-Pro-B Natriuret Pep 93 (19.9-100) pg/mL Total Protein 6.6 (6.3-8.2) g/dL Albumin 3.8 (3.5-5.1) g/dL Lipase 51 (23-300) U/L Urine Color (Yellow) Urine Appearance (Clear) Urine pH (5.0-9.0) Ur Specific [place] (1.001-1.035) Urine Protein (Negative) mg/dL Urine Glucose (UA) (Negative) mg/dL Urine Ketones (Negative) mg/dL Ur Blood (Man) (Negative) Urine Nitrate (Negative) Urine Bilirubin (Negative) Urine Urobilinogen (<2.0) mg/dL Leukocyte Esterase Rfl (Negative) SAM/UL 04/03/25 04/03/25 Range/Units 07:31 08:34 WBC (4.5-10.0) K/mm3 RBC (4.6-6.20) M/mm3 Hgb (14.0-18.0) g/dL Hct (42.0-52.0) % MCV (80-100) fl MCH (26-34) pg MCHC (32-36) g/dl RDW (11.5-14.5) % Plt Count (150-375) k/mm3 MPV (7.4-10.4) fl Immature Gran % (Auto) (0-0.5) % Neut % (Auto) (45.5-73.1) % Lymph % (Auto) (18.3-44.2) % Moody % (Auto) (2.6-8.5) % Eos % (Auto) (0-4.4) % Baso % (Auto) (0.2-1.2) % Lymph # (Auto) (0.9-3.2) K/mm3 Moody # (Auto) (0.1-0.6) K/mm3 Eos # (Auto) (0-0.3) K/mm3 Baso # (Auto) (0.0-0.1) K/mm3 Abs Immat Gran (auto) (0.00-0.031) K/mm3 Absolute Neuts (auto) (1.3-6.7) K/mm3 Absolute Nucleated RBC (0.0-0.012) K/mm3 Nucleated RBC % (0.0-0.2) % PT (11.1-14.7) Seconds INR APTT (22.3-36.8) Seconds Sodium (137-145) mmol/L Potassium (3.4-5.0) mmol/L Chloride (98-107) mmol/L Carbon Dioxide (22-30) mmol/L Anion Gap (4-12) mmol/L BUN (9-20) mg/dL Creatinine (0.7-1.3) mg/dL Estim Creat Clear Calc Estimated GFR (59 - ) Glucose (65-110) mg/dL Calcium (8.4-10.2) mg/dL Total Bilirubin (0.2-1.3) mg/dL AST (17-59) U/L ALT (6-50) U/L Alkaline Phosphatase (38-126) U/L Troponin I < 0.012 (0.000-0.034) ng/mL NT-Pro-B Natriuret Pep (19.9-100) pg/mL Total Protein (6.3-8.2) g/dL Albumin (3.5-5.1) g/dL Lipase (23-300) U/L Urine Color Yellow (Yellow) Urine Appearance Clear (Clear) Urine pH 7.5 (5.0-9.0) Ur Specific [place] 1.028 (1.001-1.035) Urine Protein Negative (Negative) mg/dL Urine Glucose (UA) Negative (Negative) mg/dL Urine Ketones Negative (Negative) mg/dL Ur Blood (Man) Negative (Negative) Urine Nitrate Negative (Negative) Urine Bilirubin Negative (Negative) Urine Urobilinogen 1.0 (<2.0) mg/dL Leukocyte Esterase Rfl Negative (Negative) SAM/UL Imaging Data Attestation: I personally reviewed and interpreted this imaging study as follows: My impression: Widened mediastinum on my independent interpretation of chest x-ray. No evidence typical pacemaker location (it is located within heart). Compared to previous CXR Mar 2023, similar/stable appearance Radiologist's impression: CT chest stat rad: No acute finding. No aortic aneurysm or dissection CT abdomen pelvis Stat Rad: Aorto bi-iliac endograft with excluded aneurysm sac 5.2cm, nonruptured. Recommend cystoscopy for right urinary bladder asymmetric nodular soft tissue thickening potentially representing neoplasm. Correlate to exclude cystitis. Otherwise no acute finding. IMPRESSION: 1. No acute cardiopulmonary findings. ECG Data EKG #1: Attestation: I personally reviewed and interpreted this ECG as follows: ECG completion date: 04/03/25 ECG completion time: 04:56 Prior ECG tracings: available for review (03/30/23 Idioventricular rhythm 24 bpm; 03/31/23 electronic ventricular rhythm) Interpretation: Electronic ventricular pacemaker ( device is intracardiac) There are appreciable P-waves before QRS complexes in QRS complexes that follow P-waves thus it does appear to be a normal sinus rhythm at a rate of 74 beats per minute. NC interval is 165 milliseconds. QRS is wide at 152 milliseconds. QT/QTC 407/454. Left bundle-branch block with QRS duration greater than 120 milliseconds, dominant S-wave in V1. EKG #2: Attestation: I personally reviewed and interpreted this ECG as follows: ECG completion date: 04/03/25 ECG completion time: 05:47 Interpretation: Electronic ventricular pacemaker at a rate of 71 beats per minute. NC interval 155. QRS 163. QT/QTC 439/462. Good R-wave progression across the precordial leads. No T-wave inversions. Discharge Plan Discharge Clinical Impression: Elevated AST (SGOT), Hyponatremia, Epigastric abdominal pain, Bladder mass Patient Disposition: Home Condition: Stable Instructions: Antibiotic Form, Hyponatremia (ED), Epigastric Pain (ED) Additional Instructions: Follow-up with your care team specialists including a primary care physician, bottom cager, and vascular surgeon. There was a bladder mass seen for which cystoscopy was recommended. Follow up with your urologist. Return to the emergency department any new or worsening symptoms. In the interim continue taking your medications as prescribed. Patient Language: Qatari Prescriptions: No Action atorvastatin 40 mg tablet 40 mg PO QPM finasteride 5 mg tablet 5 mg PO DAILY nitroglycerin [Nitrostat] 0.4 mg tablet, sublingual 0.4 mg SUBLINGUAL Q5M PRN (Reason: Chest Pain) Rx Instructions: do not exceed 3 doses per episode cholecalciferol (vitamin D3) 125 mcg (5,000 unit) capsule 125 mcg PO QMWF metoprolol succinate 25 mg tablet extended release 24 hr 25 mg PO DAILY multivitamin with minerals Capsule 1 cap PO DAILY docusate sodium 100 mg capsule 100 mg PO DAILY PRN (Reason: Constipation) tamsulosin 0.4 mg capsule 0.4 mg PO DAILY Qty: 90 3RF aspirin [Adult Low Dose Aspirin] 81 mg tablet,delayed release (DR/EC) 81 mg PO DAILY [employer] 45-3.75-50 mg tablet,chewable PO azithromycin [Zithromax Z-Holden] 250 mg tablet See Rx Instructions PO .COMPLEX Qty: 6 0RF Rx Instructions: For 250 mg dose pack: take 500 mg today (day 1), then 250 mg for 4 days (days 2-5) PO gabapentin 300 mg capsule See Rx Instructions .ROUTE .COMPLEX Qty: 90 1RF Dose Instruction: TAKE 1 CAPSULE BY MOUTH THREE TIMES DAILY Rx Instructions: TAKE 1 CAPSULE BY MOUTH THREE TIMES DAILY ropinirole 0.25 mg tablet See Rx Instructions .ROUTE .COMPLEX Qty: 30 0RF Dose Instruction: TAKE 1 TABLET BY MOUTH ONCE DAILY AT BEDTIME Rx Instructions: TAKE 1 TABLET BY MOUTH ONCE DAILY AT BEDTIME Follow-up/Referrals: Dago Henderson MD [Physician, Cardiology] Zack Becerril MD [Primary Care Provider, Family Practice] Phan Mott MD [Physician, Urology] Stand Alone Forms: Work/School Release IP Time of Disposition: 08:49
[2025-04-03 06:48] LABS: NT Pro B Type Natriuretic Pept 93 pg/mL (19.9-100); Troponin I < 0.012 ng/mL (0.000-0.034)
[2025-04-03] MEDS: BELLADONNA ALK/PHENOB ELIX 10 ML, MAG HYDROX/ALUMINUM HYD/SIMETH 30 ML, LIDOCAINE 2% VI... PO (07:04)
[2025-04-03 07:42] LABS: Add Urine Microscopic? NO; Appearance Urine Clear (Clear); Glucose Urine UA Negative (Negative); Leukocyte Esterase Ur Negative LEU/UL (Negative); Nitrate Urine Negative (Negative); Specific Grav Ur 1.028 (1.001-1.035)
[2025-04-03 09:13] LABS: Troponin I < 0.012 ng/mL (0.000-0.034)
== END 2025-04-03 09:06 | disposition home or self-care (01) ==
PROVIDERS: Emergency Provider Student in an Organized Health Care Education/Training Program; PCP Family Medicine
DX: R10.13 Epigastric pain (principal); N32.9 Bladder disorder, unspecified; E87.1 Hypo-osmolality and hyponatremia; R74.01 Elevation of levels of liver transaminase levels; I12.9 Hypertensive chronic kidney disease with stage 1 through stage 4 chronic kidney disease, or unspecified chronic kidney disease; N18.30 Chronic kidney disease, stage 3 unspecified; I25.10 Atherosclerotic heart disease of native coronary artery without angina pectoris; R73.03 Prediabetes; J44.9 Chronic obstructive pulmonary disease, unspecified; E78.5 Hyperlipidemia, unspecified; N40.0 Benign prostatic hyperplasia without lower urinary tract symptoms; K21.9 Gastro-esophageal reflux disease without esophagitis; Z95.0 Presence of cardiac pacemaker; Z86.0100 Personal history of colon polyps, unspecified; Z87.891 Personal history of nicotine dependence; Z90.49 Acquired absence of other specified parts of digestive tract; Z89.511 Acquired absence of right leg below knee; Z96.1 Presence of intraocular lens; Z98.42 Cataract extraction status, left eye; Z98.41 Cataract extraction status, right eye; Z79.82 Long term (current) use of aspirin; Z79.899 Other long term (current) drug therapy
CPT/HCPCS: 36415; 71046; 71260; 74177; 80053; 81003; 83690; 83880; 84484; 85025; 85610; 85730; 93005; 99284; A9270; Q9967

== ENCOUNTER 2025-04-28 01:41 | Day surgery (SDC) | payer OTHER, SELFPAY ==
--- OUTSIDE RECORDS SUMMARY | 2009-10-27 08:45 | XMS_ITS | Continuity of Care Document ---
Author Organization [facility] Address [id number] [place] [address] [place] [address] Phone Care Team Providers Care Driving School Instructor Name Role Phone Greg Montoya Unavailable Unavailable Procedures Procedure Date Office/outpatient Visit, Est Corneal Pachymetry Fundus Photography W/ Report Visual Field Examination-Professional Fe Visual Field Examination-Technical Jul- Office/outpatient Visit, Est Office/outpatient Visit, Est No Script Office/outpatient Visit, Est Script Printed/Phoned Pt Requ Or Pharm N ot Availab Office/outpatient Visit, Est No Script Office/outpatient Visit, Est Script Printed/Phoned Pt Requ Or Pharm N ot Availab Office/outpatient Visit, Est Script Printed/Phoned Pt Requ Or Pharm N ot Availab Advance Directives Directive Yes / No Effective Date File Name No Information Encounters Encounter Description Practice Location Reason(s) For Visit Diagnoses Date Provider Providers Copied on Encounter Office/outpat ient Visit, Est [facility], [address], [place], [place], [id number], [place] tel:[phone] [facility] No Information 0-201 0 Lindsay Garza. [address] [facility] [address], [place], [address], [place]. tel:[phone] Referring Provider: Greg null, [address], [place], [address]. tel:[phone] [facility], [address] [place] [address] [address], [place], [place], [id number], [place] tel:[phone] [facility] No Information 6- 0 Krishnasamy Greg. [address], [place], [facility], [place]. tel:[phone] Referring Provider: Greg Hairston chaka, [address], [place], [facility]. tel:[phone] [facility], [address] [place] [address] [address], [place], [place], [id number], [place] tel:[phone] [facility] No Information 0 Krishnasamy Greg. [facility] [address], [place], [facility], [place]. tel:[phone] Referring Provider: Greg null, [facility] [address] [facility] [address], [place], [facility]. tel:[phone] Office/outpat ient Visit, [facility], [address] [place] [address] [address], [place], [place], [id number], [place] tel:[phone] [facility] No Information 0 Krishnasamy Greg. [facility] [facility] [address], [place], [facility], [place]. tel:[phone] Office/outpat ient Visit, [facility], [address] [place] [address] [address], [place], [place], [id number], [place] tel:[phone] [facility] No Information 6200 9 Krishnasamy Greg. [facility] [address] [facility] [address], [place], [facility], [place]. tel:[phone] Office/outpat ient Visit, [facility], [address], [place], [place], [id number], [place] tel:[phone] [facility] No Information 3 0-200 9 Krishnasamy Greg. [facility] [address], [place], [facility], . tel:[phone] Office/outpat ient Visit, [facility], [address] [place] [address] [address], [place], [place], [id number], [place] tel:[phone] [facility] No Information 4200 9 Krishnasamy Greg. [address] [place] [address] [address], [place], [facility], . tel:[phone] Office/outpat ient Visit, [facility], [address], [place], [place], [id number], [place] tel:[phone] [facility] No Information 0200 9 Krishnasamy Greg. [address] [place] [address], [facility], [place]. tel:[phone] Office/outpat ient Visit, [facility], [address], [place], [place], [id number], [place] tel:[phone] [facility] No Information 6200 9 Lexussy Kiran. [address] [place] [address] [address], [address], [place], [facility], [place]. tel:[phone] Family History Family Member Type Diagnosis Age At Onset No Information Payers Payer name Insurance type Covered libertarian ID Authorsulaimana tibronson(s) [place] [id number] Social History Type Description Quantity Date Captured Comments Sex Male Smoking Status No Information Chief Complaint And Reason For Visit No Information Reason For Referral Reason For Referral No Information History Of Present Illness Encounter Date Complaint History Of Prese nt Illness No Information Functional Status Date Functional Assessmen t No Information Instructions Date Instruction Additional Infor mation No Information Assessments Type Assessment Date No Information Patient Care Teams Name Effective Dates (start - stop) Status Members No Information
--- NOTE | 2025-04-21 07:24 | PM.HPGS ---
History of Present Illness History of Present Illness Consent: Risks, benefits, and alternatives have been discussed and questions answered. Patient agrees to proceed with procedure. Chief complaint: bladder CA Narrative: Candelario Tyson is a 89 year old male patient was in the ER over the weekend with chest pain. ?CT scan of the abdomen pelvis chest revealed a very subtle possible growth in his bladder, near the right ureteral orifice. ?Somewhat surprisingly on CT scan there is a little papillary bladder tumor there. ?After discussion of options she is elected for TURBT with gemcitabine installation. ? He remains on combination therapy for BPH with a decent response. ?His prostate measured 31 g Review of Systems Review of Systems: All systems reviewed & are unremarkable except as noted in HPI and below PMFSH Past Medical History Medical History BPH (benign prostatic hyperplasia) Umbilical hernia GERD (gastroesophageal reflux disease) CKD (chronic kidney disease) stage 3, GFR 30-59 ml/min Prediabetes Cervical radiculopathy C6 cervical fracture C2 cervical fracture Managed conservatively COPD (chronic obstructive pulmonary disease) Pulmonary function testing 2020 demonstrate combined obstructive and restrictive ventilatory defect AAA (abdominal aortic aneurysm) With stenting Coronary artery disease Nonobstructive coronary disease noted on cardiac catheterization 2016 Hyperlipidemia HTN (hypertension) Surgical History Surgical History Status post cataract extraction of both eyes with insertion of intraocular lens History of colonoscopy with polypectomy Hx of cholecystectomy History of cardiac catheterization (~2016) History of right below knee amputation At 55 years of age due to trauma Family History Family History Father Acute myocardial infarction Malignant neoplasm of prostate Mother Family history of aortic aneurysm Other Cerebrovascular accident Family history of cardiovascular disease Hypertension Social History Social History Social History: The patient lives with his of 45 years. He drinks coffee daily. He denies any alcohol or drug use history. He used to smoke but quit smoking over 20 years ago. Code status: The patient states he would not usually want heroic measures. However he is willing to have cardiopulmonary resuscitation in the event of cardiac arrest if in the course of placement of a pacemaker. He would not want to be on a ventilator long-term. He would not want a feeding tube. His was present at bedside when the patient made the statements. 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 Spiritual care concerns: No Meds Home Medications and Allergies Home Medications ?Medication ?Instructions ?Recorded ?Confirmed ?Type atorvastatin 40 mg tablet 40 mg PO QPM 03/17/20 04/04/25 History cholecalciferol (vitamin D3) 125 125 mcg PO QMWF 03/17/20 04/04/25 History mcg (5,000 unit) capsule docusate sodium 100 mg capsule 100 mg PO DAILY PRN Constipation 03/17/20 04/04/25 History finasteride 5 mg tablet 5 mg PO DAILY 03/17/20 04/04/25 History metoprolol succinate 25 mg 25 mg PO DAILY 03/17/20 04/04/25 History tablet,extended release 24 hr multivitamin with minerals 1 cap PO DAILY 03/17/20 04/04/25 History nitroglycerin 0.4 mg sublingual 0.4 mg sublingual Q5M PRN Chest 03/17/20 04/04/25 History tablet (Nitrostat) Pain tamsulosin 0.4 mg capsule 0.4 mg PO DAILY #90 caps 09/13/22 04/04/25 Rx aspirin 81 mg tablet,delayed 81 mg PO DAILY 10/09/23 04/04/25 History release (Adult Low Dose Aspirin) vitamin C 45 mg-zinc citrate 3.75 tablet PO 10/09/23 04/04/25 History mg-elderberry 50 mg chewable tablet ([employer]) ropinirole 0.25 mg tablet See Rx Instructions .Route 04/19/25 Rx .COMPLEX #30 tabs ketoconazole 2 % topical cream 1 applic topical BID forehead rash 04/20/25 04/20/25 Rx #30 grams pregabalin 25 mg capsule 25 mg PO DAILY PRN neuoropathic 04/20/25 04/20/25 Rx pain #30 caps Allergies Allergy/AdvReac Type Severity Reaction Status Date / Time No Known Allergies Allergy Unknown Verified 04/20/25 08:48 Exam Const: General: no acute distress Resp: Effort & Inspection: normal respiratory effort GI: Inspection: non-distended GI Palp: No abdominal tenderness and No Guarding due to palpation present (GI) Auscultation: normal bowel sounds Assessment and Plan Assessment and plan (1) Malignant neoplasm of overlapping sites of bladder: Code(s): C67.8 - Malignant neoplasm of overlapping sites of bladder Status: Acute Assessment and Plan: TURBT / Gemcitabine instillation
[2025-04-21 13:52] VITALS: BMI 31.5
--- NOTE | 2025-04-21 13:53 | PC.NURSE ---
[facility] has started construction of its new state of the art ER which will open Spring 2026. With this, we anticipate parking may be a challenge for some our surgical patients and families. Parking spaces are limited but are available for all Surgical, obstetrics, and ER patients sharing this lot. If you arrive and find you are having a hard time finding a parking space, please note that we understand the challenges, please drive around the hospital and park near Hospital Entrance 1. When you enter this entrance, you can ask a volunteer to direct or take you back to the surgical waiting area to check in. We appreciate everyone?s understanding of these expected challenges while we build for your future. Report to the Outpatient Waiting Room, entrance under the green pavilion located off [address], at time _1145_ on date _26-28-1653_. Planned Procedure Time: _145pm_.? Time changes happen often and if your time is changed the preop area will call you the afternoon before. - You and your visitor will be asked to self-screen and do not enter if you have any COVID symptoms. Please call surgeon if you need to reschedule. - A mask is optional within the hospital at this time. Patients may have clear liquids (water, carbonated beverages, clear teas, apple juice) until 3 hours prior to surgery with a maximum of 20 ounces. - No food from midnight until time of surgery and no smoking, or chewing tobacco (or any form of nicotine). No chewing gum, candy or mints. Take only the following medications with a SIP of water on the morning of surgery: __Metoprolol DO NOT STOP ANY OF YOUR OTHER PRESCRIPTION MEDICATIONS PRIOR TO SURGERY EXCEPT THE FOLLOWING Hold all vitamins and supplements for 3 days per anesthesiologist. Medications to discontinue per physician Date to take last dose____ Please no make-up, nail french, hairspray, perfume, deodorant, or body powder the day of surgery.? No jewelry (including any body piercings) or valuables the day of surgery, leave them at home.? Please take a shower or bath the night before, or the morning of, surgery with an antibacterial soap.? Wear comfortable, loose fitting clothing.? - Jewelry must be removed prior to entering the operating room.? Rings and piercings that are not removed may be cut off. - The hospital will not accept responsibility for valuables.? - Please leave all valuables, including medications, at home the day of surgery. If you are going home after surgery, a licensed vending route driver must drive you home.? - NO public transportation without another adult if you receive anesthesia. - We recommend that an adult stay with you for 24 hours following discharge. - We also recommend that you do not drive, make important decision, drink alcoholic beverages, or take any drugs that were not prescribed by your health care provider for at least 24 hours after your discharge time. Follow any additional instructions given to you from your surgeon. Telephone instructions given to __Truman__and asked if any additional questions and then verbalized understanding. Patient advised to call surgeon office or pre surgery nurse liaison [phone] if any additional questions.
[2025-04-28] VITALS (9 sets, daily range): BP systolic 98–154; BP diastolic 32–87; PULSE 60–78; RESP 14–18; TEMP 36.2–36.4; O2SAT 93–100
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
--- OUTSIDE RECORDS SUMMARY | 2025-04-28 01:43 | XMS_ITS | Clinical Summary ---
Author Organization [facility] Address [address] [place] [address] Care Team Providers Care City Clerk Name Role Phone Zack Becerril MD Primary Care Provider [phone] Allergies No known active allergies Medications tamsulosin (FLOMAX) 0.4 mg capsule,extende d release 24hr Take 1 capsule (0.4 mg total) by mouth Active finasteride (PROSCAR) 5 mg tablet Take 1 tablet (5 mg total) by mouth Active multivitamin with minerals tablet Take 1 tablet by mouth daily Active docusate sodium (COLACE) 100 mg capsuleIndicati ons:constipatio n Take 1 capsule (100 mg total) by mouth daily as needed Active aspirin (ADULT LOW DOSE ASPIRIN) 81 mg enteric coated tablet Take 1 tablet (81 mg total) by mouth daily 30 tablet 11 01/26/2019 Active nitroglycerin (NITROSTAT) 0.[address] 1 tablet (0.4 mg total) under the tongue every 5 (five) minutes as needed for chest pain 30 tablet 3 09/19/2020 Active cholecalciferol (VITAMIN D-3) 2000 unit capsule Take 1 capsule (2,000 Units total) by mouth daily Active gabapentin (NEURONTIN) 100 mg capsule Take 1 capsule (100 mg total) by mouth 3 (three) times a day Active ascorbic acid/elderberry fruit (AIRBORNE, ELDERBERRY, ORAL) Active atorvastatin (LIPITOR) 40 mg tablet Take 1 tablet by mouth once daily 90 tablet 3 12/09/2024 Active metoprolol XL (TOPROL-XL) 25 mg extended release tablet Take 1 tablet by mouth once daily 90 tablet 1 12/13/2024 Active rOPINIRole (REQUIP) 0.25 mg tablet 12/21/2024 Active cyanocobalamin (Vitamin B-12) 1,000 mcg tabletIndicatio ns:Prevention of Vitamin B12 Deficiency Take 1 tablet (1,000 mcg total) by mouth daily Active Active Problems Problem Noted Date Diagnosed Date Chest pain 09/06/2024 Aneurysm of iliac artery 2023 Assessment & Plan (2023 1:20 PM CDT): Impression: Patient has a stable right iliac artery aneurysms seen on CTA of abdomen and pelvis currently measuring 1.5 cm. Plan: Continue ongoing risk factor modifications. -follow-up in 1 year for re-evaluation with aortic iliac duplex. 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 He has not found gabapentin to be helpful if it makes him groggy. He may find an agent such as Elavil in low doses to be beneficial. This is generally prescribed by the neurologist and he may want explored with his neurologist or primary care physician Ruptured Bakers cyst 10/21/2023 Assessment & Plan (10/30/2023 1:25 PM CDT): The patient's cyst and resultant hematoma continue to get smaller. He is more comfortable with the leg. The patient most likely could return to work in the next two weeks and a note was provided. He is return the office for evaluation in 4-6 weeks Assessment & Plan (10/21/2023 3:30 PM CDT): Patient has a ruptured Garcias cyst with resultant hematoma while on aspirin. The pain and swelling have improved significantly with conservative measures. He should continue with the leg wraps. He was offered aspiration of the remnant cyst but wanted to watch it instead. He should avoid prolonged standing and she had not likely return to work until the swelling is largely resorbed. He should continue with the light compression wrap. He is return the office in approximately two weeks Mass of lower leg, left 10/07/2023 Assessment & Plan (10/07/2023 2:20 PM CDT): Patient most likely strained a partially tore the medial head of the gastroc. Other possibilities would include a ruptured Garcias cyst or even a mass. He does have ecchymotic changes in the skin and likely had some bleeding occur. The patient does not have a DVT by Doppler ultrasound and does not have a compartment syndrome currently. He should be keeping the leg elevated with ice packs. The compression stockings are likely to be too tight in an Rafal wrap was used for a light compression wrap. The patient should work on foot and ankle pumps and use crutches as needed. Would like to obtain an MRI to make sure there has no mass which can be associated with anechoic findings on ultrasounds. Left leg pain 10/03/2023 Assessment & Plan (10/03/2023 11:23 AM CDT): No signs of trauma, no evidence of deep vein thrombosis. Recommend further evaluation by his PCP as pain may be musculoskeletal in nature and related to the knee. 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 Dx; CHB. DOI 03/31/2023-Marisela. [employer] remote. Primary hypertension 11/06/2022 Assessment & Plan (2023 1:21 PM CDT): Impression: Chronic and stable. Plan: Continue metoprolol, lisinopril Assessment & Plan (10/03/2023 11:23 AM CDT): Stable continue metoprolol 25 mg. Assessment & Plan (11/06/2022 9:48 AM CDT): Stable continue lisinopril 2.5 mg. H/O cardiomyopathy 04/18/2022 Mixed hyperlipidemia 10/08/2021 Assessment & Plan (2023 1:20 PM CDT): Impression: Chronic stable. Plan: Continue Lipitor Assessment & Plan (10/03/2023 11:24 AM CDT): Stable Lipitor 40 mg. Closed nondisplaced fracture of second cervical vertebra 06/29/2021 COPD (chronic obstructive pulmonary disease) CRUZ (dyspnea on exertion) 10/18/2020 Pulmonary HTN (CMS/HCC) 10/18/2020 Cardiomyopathy 02/29/2020 Localized edema 02/09/2020 Dizziness 07/10/2017 Frequent headaches 07/10/2017 History of endovascular sten t graft for abdominal aortic aneurysm (AAA) 04/08/2017 Assessment & Plan (12/12/2022 8:16 AM CDT): CTA of his AAA status post EVAR in 2017 currently measuring 5.3 x 4.2 cm. Small right internal iliac artery aneurysm measuring 1.5 cm. Left lower extremities warm well perfused palpable distal pulses. Continues to deny any abdominal flank or back pain. Continues to be compliant with medications. Plan: Continue risk factor modifications compliance with medications and continue utilizing compression to his left lower extremity to help manage the edema. Follow-up in 1 year with routine surveillance with CT of the abdomen and pelvis. Assessment & Plan (11/06/2022 9:45 AM CDT): Status post EVAR in 2017 at [facility]. No recent surveillance, CT abdomen pelvis ordered for further evaluation if this is negative for endoleak we will continue surveillance with aortoiliac duplexes. Continue risk factor modification with ASA and statin therapy. Dyslipidemia 03/11/2017 Assessment & Plan (11/06/2022 9:45 AM CDT): Stable needle Lipitor 40 mg. 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 He remains asymptomatic. CT of abdomen and pelvis reveals a patent endograft repair with no endoleak seen. Plan: Continue ongoing risk factor modifications. -patient to follow-up in 1 year for re-evaluation with aortoiliac duplex. Abnormal nuclear stress test 02/03/2017 LBBB (left bundle branch block) 02/03/2017 Exertional angina 02/03/2017 History of tobacco abuse 02/03/2017 Encounters Date Type Department Care Team Description 04/05/2025 Orders Only [facility] Vascular and Vein Surgery [address] [place] [phone] ProviderJose Alberto MD 04/05/2025 Telephone [facility] Cardiology [address] [address] [place] [phone] Dago Henderson MD 04/03/2025 6:15 AM CDT - 04/03/2025 11:59 PM CDT Hospital Encounter [facility] [employer] [address] [place] [address] Discharge Disposition: Discharge to home or self care 03/18/2025 8:00 AM CDT Office Visit 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 Cardiology [address] [place] [phone] LBBB (left bundle branch block); Cardiac pacemaker in situ; Complete heart block (HCC) 02/04/2025 8:00 AM CDT Orders Only [facility] [address] [place] [address] from Last 3 Months Surgical History Surgery Date Site/Laterality Comments BELOW KNEE LEG AMPUTATION 06/30/1990 - 06/29/1991 TONSILLECTOMY CHOLECYSTECTOMY LUNG REMOVAL, PARTIAL 06/30/1985 - 06/29/1986 CARDIAC PACEMAKER PLACEMENT 03/30/2023 - 04/29/2023 [facility] Medical History Medical History Date Comments Hernia Enlarged prostate Hyperlipidemia Chest pain Coronary artery disease AAA (abdominal aortic aneurysm) Hypertension Syncope Family History Medical History Relation Name Comments Heart attack Father 89 Aneurysm Mother 74 Relation Name Status Comments Father 89 Mother 74 Social History Tobacco Use Types Packs/Day Years Used Date Smoking Tobacco: Former Cigarettes Q uit: 07/06/2001 Smokeless Tobacco: Never Tobacco Cessation:Counseling Given: Not Answered Alcohol Use Standard Drinks/Week Comments No 0 (1 standard drink = 0.6 oz pur e alcohol) Sex and Gender Information Value Date Recorded Sex Assigned at Not on file Legal Sex Male 8:51 AM CDT Gender Identity Not on file Sexual Orientation Not on file Obstetrics History Last Filed Vital Signs Vital Sign Reading Time Taken Comments Blood Pressure 112/62 03/18/2025 7:55 AM CDT Pulse 86 03/18/2025 7:55 AM CDT Temperature 36.9 C (98.5 F) 07/09/2023 8:22 AM LEAD SALES CONSULTANT Respiratory Rate 18 07/09/2023 8:22 AM LEAD SALES CONSULTANT Oxygen Saturation 97% 03/18/2025 7:55 AM CDT Inhaled Oxygen Concentration - - Weight 88.9 kg (196 lb) 03/18/2025 7:55 AM CDT Height 170.2 cm (5' 7) 03/18/2025 7:55 AM CDT Body Mass Index 30.7 03/18/2025 7:55 AM CDT Plan of Treatment Health Maintenance Due Date Last Done Comments Depression Screening 1935 Fall Risk Assessment 1935 DTaP/Tdap/Td Vaccine (1 - Tdap) 1948 Hepatitis B Screening 12/19/1955 Pneumococcal vaccine 65+ (1 of 2 - PCV) 1956 Zoster Vaccine (1 of 2) 12/19/1987 Well Visit 65+ 2002 Influenza Vaccine (#1) 2025 Medical Devices Implanted Type Area Email Marketing Specialist Device Identifier Shelf Expiration Date Model / Serial / Lot Medtronic-Sten [id number] nt Implanted:Qty: 1 on 03/17/2017 by Nohemy Edwards MD Stent Abdomen Medtronic [id number] / [id number] / Medtronic Micra Implanted:Qty: 1 on 03/31/2023 by Rui Antonio MD Left: Heart Medtronic [id number] / [id number] / Description:DR. REILLY LÓPEZ T IS HIS USUAL DOCTOR Procedures Procedure Name Priority Date/Time Associated Diagnosis Comments CT ABDOMEN PELVIS W WO CONTRAST Schedule Routine, Read Routine (OP Routine) 04/03/2025 11:[address] BODY OUTSIDE REFERENCE Routine 04/03/2025 6:15 AM CDT ELECTROCARDIOGRAM REPORT Routine 03/18/2025 9:13 AM CDT Chest pain, unspecified type DEVICE CHECK - REMOTE Routine 03/01/2025 9:00 AM CDT LBBB (left bundle branch block) Cardiac pacemaker in situ Complete heart block (HCC) from Last 3 Months Results * CT Abdomen Pelvis W WO Contrast (04/03/2025 11:13 AM CDT) Anatomical Region Laterality Modality Body N/A Computed Tomogra phy us Historical Provider IMG CT PROCEDURES Final R esult * CT Body Outside Reference (04/03/2025 6:15 AM CDT) Narrative [id number] - 04/08/2025 9:05 AM CDT This order has been auto-finalized and does not contain a result. us Provider Transcribed Order IMG CT PROCEDURES Fin al Result [id number]_MHE * Electrocardiogram Report (03/18/2025 9:13 AM CDT) us Dago Henderson MD ECG ORDERABLES Final Res ult * DEVICE CHECK - REMOTE (03/01/2025 9:00 AM CDT) Anatomical Region Laterality Modality Other Narrative 03/03/2025 12:47 PM CDT Medtronic Micra AV. Dx; CHB. DOI 03/31/2023-Marisela. [employer] remote. Routine VDD Pacemaker Remote. Transmission attached. Battery status: 3.01 V V, 7.8 years years remaining battery life to GLO. Stable electrode impedance, pacing and sensing thresholds. Presenting rhythm: ZUMBA INSTRUCTOR/AM ZUMBA INSTRUCTOR AM/ZUMBA INSTRUCTOR- 72.2 %, ZUMBA INSTRUCTOR- 11.9 % Medications: ASA 81 mg, Toprol-XL 25 mg See scanned report. Office pacemaker follow up: 11/16/25 [employer] remote f/u 06/01/25. us Dago Henderson MD [facility] Final Result from Last 3 Months Insurance [employer] PPO [employer] PPO Care Teams City Clerk Relationship Specialty Start Date End Date Zack Becerril MD PCP - General Family Practice 07/09/23
--- OUTSIDE RECORDS SUMMARY | 2025-04-28 01:43 | XMS_ITS | Encounter Summary ---
Author Organization [facility] Address [address] [place] [address] Care Team Providers Care Sales Representative Printing Paper Name Role Phone Sunny Zuniga DO Primary Care Provider Zack Becerril MD Primary Care Provider [phone] Encounter Details Date Type Department Care Team (Late st Contact Info) Description 12/22/2020 Telephone [facility] [address] [place] [address] Transcribed Order, Provider Social History Tobacco Use Types Packs/Day Years Used Date Smoking Tobacco: Former Cigarettes Q uit: 07/06/2001 Smokeless Tobacco: Never Alcohol Use Standard Drinks/Week Comments No 0 (1 standard drink = 0.6 oz pur e alcohol) Sex and Gender Information Value Date Recorded Sex Assigned at Not on file Legal Sex Male 8:51 AM CDT Gender Identity Not on file Sexual Orientation Not on file documented as of this encounter Plan of Treatment Not on file documented as of this encounter Visit Diagnoses Not on filedocumented in this encounter Additional Health Concerns Infection Onset Date Last Indicated Resolved Time COVID: Suspected 07/09/2023 07/09/2023 07/09/2023 3:55 PM NEW ACCOUNTS BANKING REPRESENTATIVE documented as of this encounter Care Teams Sales Representative Printing Paper Relationship Specialty Start Date End Date Sunny Zuniga DO PCP - General Internal Medicine 03/04/17 07/08/23 Zack Becerril MD PCP - General Family Practice 07/09/23 documented as of this encounter
--- NOTE | 2025-04-28 06:21 | WPDHPUPDATE1 ---
History and Physical Update Update Date/Time: 04/28/25 06:21 History and Physical has been reviewed, including an updated exam of the patient. There are NO changes in the patient's condition. Risks, benefits, and alternatives have been discussed and questions answered. Patient agrees to proceed with procedure.
[2025-04-28] MEDS: LACTATED RINGERS 1,000 ML 30 ML IV CONT (13:00)
--- NOTE | 2025-04-28 13:57 | WPDANESEPPF ---
Anes - Initial Pre Proc Eval Procedure: Operation Date: 04/28/25 13:45 Proposed Procedures p Trans Urethral Resection Bladder Tumor with Gemcitabine Instillation - Phan Mott MD Date/Time: 04/28/25 13:57 Surgeon: Phan Mott MD Pre Op Diagnosis: bladder CA Patient Data Age: 89 Gender: M Height: 1.68 m Weight: 88.6 kg Allergies Allergy/AdvReac Type Severity Reaction Status Date / Time No Known Allergies Allergy Unknown Verified 04/21/25 13:39 Home Medications ?Medication ?Instructions ?Recorded ?Confirmed ?Type atorvastatin 40 mg tablet 40 mg PO QPM 03/17/20 04/21/25 History cholecalciferol (vitamin D3) 125 125 mcg PO QMWF 03/17/20 04/21/25 History mcg (5,000 unit) capsule docusate sodium 100 mg capsule 100 mg PO DAILY PRN Constipation 03/17/20 04/21/25 History finasteride 5 mg tablet 5 mg PO DAILY 03/17/20 04/21/25 History metoprolol succinate 25 mg 25 mg PO DAILY 03/17/20 04/21/25 History tablet,extended release 24 hr multivitamin with minerals 1 cap PO DAILY 03/17/20 04/21/25 History nitroglycerin 0.4 mg sublingual 0.4 mg sublingual Q5M PRN Chest 03/17/20 04/21/25 History tablet (Nitrostat) Pain tamsulosin 0.4 mg capsule 0.4 mg PO DAILY #90 caps 09/13/22 04/21/25 Rx aspirin 81 mg tablet,delayed 81 mg PO DAILY 10/09/23 04/21/25 History release (Adult Low Dose Aspirin) vitamin C 45 mg-zinc citrate 3.75 1 tablet PO DAILY 10/09/23 04/21/25 History mg-elderberry 50 mg chewable tablet ([place]) ropinirole 0.25 mg tablet See Rx Instructions .Route 04/19/25 04/21/25 Rx .COMPLEX #30 tabs ketoconazole 2 % topical cream 1 applic topical BID forehead rash 04/20/25 04/21/25 Rx #30 grams pregabalin 25 mg capsule 25 mg PO DAILY PRN neuoropathic 04/20/25 04/21/25 Rx pain #30 caps Patient hx anesthesia problems: none Family hx anesthesia problems: none Results Review: All pre-operative results and documents have been reviewed as part of the pre-operative evaluation. [facility] Past Medical History Medical History BPH (benign prostatic hyperplasia) Umbilical hernia GERD (gastroesophageal reflux disease) CKD (chronic kidney disease) stage 3, GFR 30-59 ml/min Prediabetes Cervical radiculopathy C6 cervical fracture C2 cervical fracture Managed conservatively COPD (chronic obstructive pulmonary disease) Pulmonary function testing 2020 demonstrate combined obstructive and restrictive ventilatory defect AAA (abdominal aortic aneurysm) With stenting Coronary artery disease Nonobstructive coronary disease noted on cardiac catheterization 2016 Hyperlipidemia HTN (hypertension) Surgical History Surgical History Status post cataract extraction of both eyes with insertion of intraocular lens History of colonoscopy with polypectomy Hx of cholecystectomy History of cardiac catheterization (~2016) History of right below knee amputation At 55 years of age due to trauma Family History Family History Father Acute myocardial infarction Malignant neoplasm of prostate Mother Family history of aortic aneurysm Other Cerebrovascular accident Family history of cardiovascular disease Hypertension Social History Social History Social History: The patient lives with his of 45 years. He drinks coffee daily. He denies any alcohol or drug use history. He used to smoke but quit smoking over 20 years ago. Code status: The patient states he would not usually want heroic measures. However he is willing to have cardiopulmonary resuscitation in the event of cardiac arrest if in the course of placement of a pacemaker. He would not want to be on a ventilator long-term. He would not want a feeding tube. His was present at bedside when the patient made the statements. 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 ) Neurological: alert and oriented Last oral intake: >/= 8 hours ASA classification: IV Emergent: no Anesthetic plan: proceed Anesthesia type and monitoring: general LMA and standard monitoring Results Review: All pre-operative results and documents have been reviewed as part of the pre-operative evaluation. Complicated hx w leadless pacemaker, HTN, hyperlipidemia, overall fair functional status, no cp or sob w walking short distances. Informed Consent: The patient's anesthetic plan and its attendant risks and benefits were discussed with the patient/family/POA. Questions were solicited and answers provided to the satisfaction of the patient/family/POA.
[2025-04-28] MEDS: ceFAZolin 2 GM in SODIUM CHLORIDE 0.9% IV 50 ML 100 ML IVPB (14:02)
--- NOTE | 2025-04-28 14:33 | S_PTH ---
PATIENT: Candelairo Tyson LOC: [facility] U#:[id number] AGE/SX: 89/M ROOM: RE04/28/[address]: Phan Mott MD : 1935 BED: DIS: 04/28/2025 SPEC #: [id number] RECD: 04/29/25 09:14 STATUS: JUDAH REQ #: [id number] JUSTICE: 04/28/25 14:[address]: Phan Mott DEPT: [facility] Surgical RECD BY: Georgia Arciniega ENTERED: 04/29/25 09:14 SP TYPE: Surgical OTHR DR: Zack Becerril MD Tissues: A - Bladder Tumor Procedures: Hematoxylin and Eosin Stain Gross and Microscopic Level 4
[2025-04-28] MEDS: SODIUM CHLORIDE 0.9% IV 23.7 ML, GEMCITABINE HCL 1,000 MG BLADDER ×2 (14:41→14:42)
[2025-04-28] MEDS: fentaNYL CITRATE INJ (*CRX) 100 MCG/2 ML VIAL 25 MCG IV PUSH ×4 (14:54→15:21)
--- NOTE | 2025-04-28 17:36 | W.PM.PROC2 ---
Procedure Note - Detailed Date of Procedure 04/28/25 Pre-op Diagnosis Bladder cancer Post-op Diagnosis Same Procedure Performed TURBT (small) Surgeon Phan Mott MD Anesthesia General Findings 1-2 cm papillary bladder tumor in the right posterior lateral bladder wall Description of Procedure This patient is brought to the operative suite was prepped and draped in routine sterile fashion while in dorsal lithotomy position after the uneventful induction of a general LMA anesthetic. Twenty-four F resectoscope was placed into his bladder. His Marilin was very carefully inspected. He does have moderate prostatic hyperplasia. The bladder was trabeculated with cellule formation but without jabier diverticula. Careful inspection reveals a papillary neoplasm in the right posterior lateral bladder wall measuring about 1-2 cm. This is resected in its entirety with an attempt made to include detrusor muscle for pathological evaluation of invasion. Base and periphery are cauterized with the loop electrode. The resectoscope was removed and an 18 F Jones catheter was placed to drainage. This will be used for gemcitabine installation Urine Output 100 Pathology Yes Complications No immediate complications Condition Stable Disposition PACU
--- NOTE | 2025-04-28 17:38 | W.PM.PROC2 ---
Procedure Note - Detailed Date of Procedure 04/28/25 Pre-op Diagnosis Bladder cancer Post-op Diagnosis Same Procedure Performed Gemcitabine installation Surgeon Phan Mott MD Anesthesia Local Description of Procedure With the patient in the supine position, a 16F Jones catheter is placed using sterile technique. Using a protective facemask, gown and double layer of gloves Gemcitabine 2gm in 100cc saline is administered through the catheter/into the bladder. The catheter is then plugged. Patient was instructed to lie supine x20min, then to roll both the left and right x20 min. each. Total dwell time will be 60 min., after which the bladder will be drained and catheter removed. Urine Output 100
== END 2025-04-28 16:49 | disposition home or self-care (01) ==
PROVIDERS: PCP Family Medicine; Visit Provider Urology
PROC: 0TBB8ZZ Excision of Bladder, Via Natural or Artificial Opening Endoscopic (ICD-10-PCS; CPT 52234; principal; 2025-04-28 13:45)
DX: C67.2 Malignant neoplasm of lateral wall of bladder (principal); Z87.891 Personal history of nicotine dependence; E66.9 Obesity, unspecified; Z68.31 Body mass index [BMI] 31.0-31.9, adult
CPT/HCPCS: 52234; 51720; 88305; J0690; J2003; J2405; J2704; J3010; J7120; J9201

== ENCOUNTER 2025-06-28 13:27 | Emergency (ER) | payer OTHER, SELFPAY ==
--- NOTE | ~2025-06-28 | XR_ITS ---
XR chest 2V 06/28/2025 14:07 Indication: Cough Procedure: 2 view chest Comparison: Comparison to multiple prior studies sequentially, with oldest reviewed study dated 03/30/2023. Findings: Heart size normal. There is evidence of chronic granulomatous disease in the mediastinum and lung parenchyma. No focal air space disease, pulmonary edema, pleural effusion or suspected pneumothorax. There is atherosclerosis and ectasia of the aorta. Impression: 1: No acute cardiopulmonary disease. Reviewed, dictated and finalized at location O. DRY ASSISTANT Impression: 1: No acute cardiopulmonary disease.
[2025-06-28 13:39] VITALS: BP 136/65; PULSE 72; RESP 16; TEMP 36.2; O2SAT 100
--- NOTE | 2025-06-28 15:11 | ED.URI ---
HPI - URI/Sore Throat General Chief Complaint: Upper Respiratory Infection Stated Complaint: Cough/Congestion Time Seen by Provider: 06/28/25 14:35 Source: patient and RN notes reviewed Mode of arrival: ambulatory Limitations: no limitations History of Present Illness HPI Narrative: 89-year-old male patient presents Express Care complaining of upper respiratory symptoms for 1 week. Patient complains of cough, congestion, mucopurulent productive cough. Patient is a chest pain, breathing problems, nausea, vomiting, diarrhea, or any other symptoms. Patient taking [id number] cold and flu medication without relief. Patient has a history of COPD. Related Data Home Medications ?Medication ?Instructions ?Recorded ?Confirmed ?Last Taken ?Type atorvastatin 40 mg tablet 40 mg PO QPM 03/17/20 04/21/25 Unknown History cholecalciferol (vitamin D3) 125 125 mcg PO QMWF 03/17/20 04/28/25 04/20/25 History mcg (5,000 unit) capsule docusate sodium 100 mg capsule 100 mg PO DAILY PRN Constipation 03/17/20 04/21/25 Unknown History finasteride 5 mg tablet 5 mg PO DAILY 03/17/20 04/21/25 Unknown History metoprolol succinate 25 mg 25 mg PO DAILY 03/17/20 04/28/25 04/28/25 History tablet,extended release 24 hr multivitamin with minerals 1 cap PO DAILY 03/17/20 04/28/25 04/20/25 History nitroglycerin 0.4 mg sublingual 0.4 mg sublingual Q5M PRN Chest 03/17/20 04/21/25 Unknown History tablet (Nitrostat) Pain aspirin 81 mg tablet,delayed 81 mg PO DAILY 10/09/23 04/21/25 04/20/25 History release (Adult Low Dose Aspirin) vitamin C 45 mg-zinc citrate 3.75 1 tablet PO DAILY 10/09/23 04/28/25 04/20/25 History mg-elderberry 50 mg chewable tablet ([employer]) Allergies Allergy/AdvReac Type Severity Reaction Status Date / Time No Known Allergies Allergy Unknown Verified 06/28/25 13:29 Review of Systems Review of Systems: CONSTITUTIONAL: Denies fever, chills, or sweats. EYES: Denies visual changes, redness, or discharge. ENT: Denies rhinorrhea, sore throat, or otalgia. Positive for congestion CARDIOVASCULAR: Denies chest pain, palpitations, or edema. RESPIRATORY: Positive for cough. Negative for wheezing or dyspnea. GASTROINTESTINAL: Denies abdominal pain, nausea, vomiting, or diarrhea. GENITOURINARY: Denies dysuria or hematuria. SKIN: Denies rash or itching. MUSCULOSKELETAL: Denies back pain, joint pain, or myalgia. NEUROLOGIC: Denies headache, numbness, or weakness. PSYCHIATRIC: Denies anxiety or depression. All other systems reviewed are negative, except as documented in HPI. [facility] Past Medical History Medical History BPH (benign prostatic hyperplasia) Umbilical hernia GERD (gastroesophageal reflux disease) CKD (chronic kidney disease) stage 3, GFR 30-59 ml/min Prediabetes Cervical radiculopathy C6 cervical fracture C2 cervical fracture Managed conservatively COPD (chronic obstructive pulmonary disease) Pulmonary function testing 2020 demonstrate combined obstructive and restrictive ventilatory defect AAA (abdominal aortic aneurysm) With stenting Coronary artery disease Nonobstructive coronary disease noted on cardiac catheterization 2016 Hyperlipidemia HTN (hypertension) Surgical History Surgical History Status post cataract extraction of both eyes with insertion of intraocular lens History of colonoscopy with polypectomy Hx of cholecystectomy History of cardiac catheterization (~2016) History of right below knee amputation At 55 years of age due to trauma Family History Family History Father Acute myocardial infarction Malignant neoplasm of prostate Mother Family history of aortic aneurysm Other Cerebrovascular accident Family history of cardiovascular disease Hypertension Social History Social History Social History: The patient lives with his of 45 years. He drinks coffee daily. He denies any alcohol or drug use history. He used to smoke but quit smoking over 20 years ago. Code status: The patient states he would not usually want heroic measures. However he is willing to have cardiopulmonary resuscitation in the event of cardiac arrest if in the course of placement of a pacemaker. He would not want to be on a ventilator long-term. He would not want a feeding tube. His was present at bedside when the patient made the statements. Surrogate decision maker: Smoking packs per day: 1 Smoking cigarettes per day: 20.0 Years smoked: 40 Smoking pack-years: 40.00 Smoking status: Former smoker Tobacco type: cigarettes Additional smoking assessment comments: patient smoked for 52 years Alcohol intake: never Alcohol use details: occasional beer Substance use: never Substance use type: does not use Lack of Transportation: No Lack of Food: Never True Current Housing: I Have Housing Concerned About Future Housing: No Difficulty Paying Gas/Electric Bills: No Difficulty Paying for Meds: No Currently Unemployed: No Education: High School Diploma/GED Difficulty w/ Childcare or Family Care: No Living arrangements: with family Occupation/Education: occupation Additional occupation/education comments: 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 There is no relevant family history pertinent to the patient complaint. Exam Narrative: GENERAL: This is a well-nourished, well-developed adult, in no apparent distress. They are non ill-appearing, nontoxic appearing. HEAD: normocephalic, atraumatic. EYES: Sclera clear/white. Conjunctiva normal. Vision is grossly intact. Extraocular movements intact EARS: External ears normal, auditory canals clear and without drainage, TMs normal without perforation. Hearing grossly intact. NOSE: External nose normal with no obvious nasal discharge, nasal turbinates erythematous, no rhinorrhea. THROAT: Mucous membranes moist, posterior pharynx erythematous with PND Uvula midline. NECK: Neck supple, non-tender without lymphadenopathy, masses or thyromegaly. CARDIOVASCULAR: Regular rate and rhythm without murmurs, gallops, or rubs. RESPIRATORY: Wheezes heard throughout. Breath sounds equal bilaterally. No rales, or rhonchi. SKIN: warm, Dry, intact with no suspicious lesions or rash, good texture and turgor. NEURO: awake, alert, and oriented to person, place and time. There were no obvious focal neurologic abnormalities. EXTREMITIES: No joint tenderness, effusion, or edema noted. BACK: Nontender without deformity. Course Course Level of Care: Express Care Visit Vital Signs Vital signs: Vital Signs Temperature 97.1 F L 06/28/25 13:39 Pulse Rate 72 06/28/25 13:39 Respiratory Rate 16 06/28/25 13:39 Blood Pressure 136/65 06/28/25 13:39 Pulse Oximetry 100 06/28/25 13:39 Temperature 97.1 F L 06/28/25 13:39 Pulse Rate 72 06/28/25 13:39 Respiratory Rate 16 06/28/25 13:39 Blood Pressure 136/65 06/28/25 13:39 Pulse Oximetry 100 06/28/25 13:39 MDM MDM Narrative Medical decision making narrative: Chest x-ray negative for any acute cardiopulmonary findings. Patient's lung sounds with wheezes throughout has a history of COPD. Patient does not use inhaler. Patient likely has a sinusitis. Will treat with Augmentin and given prednisone for the wheezing. Will also send patient home with a albuterol inhaler. Differential Diagnosis Differential Diagnosis: Differential diagnostic considerations for upper respiratory infection include upper respiratory infection, croup, otitis media, sinusitis, viral infection, bronchitis, influenza, pharyngitis, strep, uvulitis, pneumonia, COPD exacerbation. Imaging Data Radiologist's impression: ITS Impressions Chest X-Ray 06/28/25 14:40 Impression: 1: No acute cardiopulmonary disease. Critical Care Time Critical Care Time Critical Care Time: No Discharge Plan Discharge Clinical Impression: Sinusitis Qualifiers: Sinusitis location: unspecified location Chronicity: acute Recurrence: non-recurrent Qualified Code(s): J01.90 - Acute sinusitis, unspecified Patient Disposition: Home Condition: Stable Instructions: Antibiotic Form, Sinusitis (ED) Additional Instructions: Chest x-ray is negative for any acute cardiopulmonary findings. Take the antibiotics as directed and complete the course even if you start to feel better. Use albuterol inhaler as needed for wheezing. The prednisone as directed. You may use a Neti pot saline rinse 3 times a day with lukewarm distilled water Continue to take Tylenol or Motrin as needed for pain or fevers. Use a humidifier or vaporizer at night. Drink plenty of water. 8-10 glasses per day. Use flonase 2 times per day for 5 days then as needed Take mucinex 2 times per day and be sure to take with 8oz of water. Follow up with Primary provider in 3-5 days Please go to the ER if he develops any difficulty breathing, chest pain, weakness, confusion, vomiting, worsening symptoms, or any other serious concerns Patient Language: Korean Prescriptions: New prednisone 20 mg tablet 40 mg PO DAILY 5 Days Qty: 10 0RF albuterol sulfate [Ventolin HFA] 90 mcg/actuation HFA aerosol inhaler 2 puff inhalation QID PRN (Reason: shortness of breath or wheezing) Qty: 8.5 0RF amoxicillin-pot clavulanate 875-125 mg tablet 1 tablet PO Q12H 7 Days Qty: 14 0RF No Action atorvastatin 40 mg tablet 40 mg PO QPM finasteride 5 mg tablet 5 mg PO DAILY nitroglycerin [Nitrostat] 0.4 mg tablet, sublingual 0.4 mg SUBLINGUAL Q5M PRN (Reason: Chest Pain) Rx Instructions: do not exceed 3 doses per episode cholecalciferol (vitamin D3) 125 mcg (5,000 unit) capsule 125 mcg PO QMWF metoprolol succinate 25 mg tablet extended release 24 hr 25 mg PO DAILY multivitamin with minerals Capsule 1 cap PO DAILY docusate sodium 100 mg capsule 100 mg PO DAILY PRN (Reason: Constipation) tamsulosin 0.4 mg capsule 0.4 mg PO DAILY Qty: 90 3RF aspirin [Adult Low Dose Aspirin] 81 mg tablet,delayed release (DR/EC) 81 mg PO DAILY [employer] 45-3.75-50 mg tablet,chewable 1 tablet PO DAILY pregabalin 25 mg capsule 25 mg PO DAILY PRN (Reason: neuoropathic pain) Qty: 30 0RF ketoconazole 2 % cream 1 applic topical BID Qty: 30 0RF ropinirole 0.25 mg tablet See Rx Instructions .ROUTE .COMPLEX Qty: 30 1RF Dose Instruction: TAKE 1 TABLET BY MOUTH ONCE DAILY AT BEDTIME Rx Instructions: TAKE 1 TABLET BY MOUTH ONCE DAILY AT BEDTIME Follow-up/Referrals: Zack Becerril MD [Primary Care Provider, Family Practice] Time of Disposition: 14:53
== END 2025-06-28 14:58 | disposition home or self-care (01) ==
PROVIDERS: PCP Family Medicine
DX: J01.90 Acute sinusitis, unspecified (principal); I12.9 Hypertensive chronic kidney disease with stage 1 through stage 4 chronic kidney disease, or unspecified chronic kidney disease; N18.30 Chronic kidney disease, stage 3 unspecified; I25.10 Atherosclerotic heart disease of native coronary artery without angina pectoris; E78.5 Hyperlipidemia, unspecified; Z87.891 Personal history of nicotine dependence
CPT/HCPCS: 71046; 99213; G0463